=== PATIENT | female | born 1965 | race Caucasian/White ===

== ENCOUNTER 2024-02-14 01:25 | Inpatient (IN) | payer MEDICARE, MEDICAID ==
[~2024-02-14] VITALS: Ht 162.6 cm; Wt 91.2 kg
[~2024-02-14 01:25] MED LIST: ACET1TAB12 PO; AZIT250T PO; BACL10TA2 PO; HYDR25TA5 PO; OMEP-84 PO; TRAM50TA2 PO; [UNRECOGNIZED DRUG - CODE] PO
[2024-02-14] MEDS: HYDROmorphone 1 mg/ml syringe IV ONE (02:20)
[2024-02-14 02:23] LABS: BASOPHILS % (AUTO) 0.4 % (0-1); EOSINOPHILS # (AUTO) 0.4 X10'3 (0-0.9); EOSINOPHILS % (AUTO) 4.8 % (0-6); HEMATOCRIT 37.8 % (35.0-45.0); HEMOGLOBIN 12.9 g/dl (12.0-16.0); LYMPHOCYTES # (AUTO) 2.7 X10'3 (1.1-4.8); LYMPHOCYTES % (AUTO) 32.1 % (21-51); MEAN CORPUSCULAR HEMOGLOBIN 26.7 PG (27.0-31.0); MEAN CORPUSCULAR HGB CONC 34.2 g/dL (33.0-36.5); MEAN PLATELET VOLUME 8.4 FL (7.4-10.4); MONOCYTES # (AUTO) 0.7 X10'3 (0-0.9); NEUTROPHILS # (AUTO) 4.6 X10'3 (1.8-7.7); NEUTROPHILS % (AUTO) 54.7 % (42-75); PLATELET COUNT 267 X10'3 (140-440); RED BLOOD COUNT 4.85 X10'6 (4.20-5.60); RED CELL DISTRIBUTION WIDTH 14.2 % (11.5-14.5); WHITE BLOOD COUNT 8.5 X10'3 (4.5-11.0)
[2024-02-14 02:35] LABS: APTT 27 SECONDS (22-32); PROTHROMBIN TIME 10.3 SECONDS (9.0-12.0)
[2024-02-14] MEDS ORDERED: potassium Cl 40MEQ/1/2NS 520ml 520 ML IV PRN (02:45)
[2024-02-14] MEDS ORDERED: mag hydrox/Alum hydrox/simeth 30ml oral suspension PO PRN (02:45)
[2024-02-14] MEDS ORDERED: acetaminophen 325mg tablet PO PRN (02:45)
[2024-02-14] MEDS ORDERED: magnesium Cl slow-release 64mg tablet PO PRN (02:45)
[2024-02-14] MEDS ORDERED: HYDROmorphone/PF 0.2 MG/ML SYRINGE IV PRN (02:45)
[2024-02-14] MEDS ORDERED: magnesium sulf-water 4G/100mL 100 ML IV PRN (02:45)
[2024-02-14] MEDS ORDERED: potassium Cl 20 mEq SR tablet PO PRN ×2 (02:45)
[2024-02-14] MEDS ORDERED: magnesium sulf-water 2g/50mL 50 ML IV PRN (02:45)
[2024-02-14] MEDS ORDERED: ondansetron/PF 4mg/2ml inj IV PRN (02:45)
[2024-02-14 02:47] LABS: ALANINE AMINOTRANSFERASE 18 U/L (12-78); ALKALINE PHOSPHATASE 71 IU/L (46-116); ANION GAP 7 (8-16); ASPARTATE AMINO TRANSFERASE 21 U/L (10-37); BILIRUBIN,DIRECT 0.2 MG/DL (0-0.3); BILIRUBIN,TOTAL 0.8 MG/DL (0.1-1.0); BLOOD UREA NITROGEN 10 MG/DL (7-18); BUN/CREATININE RATIO 8.3 (10.0-20.0); CALCIUM 8.2 MG/DL (8.5-10.1); CHLORIDE 103 MMOL/L (99-107); CREATININE 1.21 MG/DL (0.40-0.90); GLUCOSE 115 MG/DL (70-104); MAGNESIUM 2.5 MG/DL (1.5-2.4); SODIUM 140 MMOL/L (135-145); TOTAL PROTEIN 6.1 G/DL (6.4-8.2); eCRCL 44 ML/MIN; eGFR 46 ML/MIN
[2024-02-14] MEDS ORDERED: DEXTROSE 15 GM of carb/4 tabs (each vial/BOTTLE has 4 tablets) PO PRN ×2 (02:50)
[2024-02-14] MEDS ORDERED: glucagon, human recombinant 1mg kit SUBCUT PRN (02:50)
[2024-02-14] MEDS ORDERED: dextrose 50%-water 50ml dispensing syringe IV PRN ×2 (02:50)
[2024-02-14 02:53] LABS: POTASSIUM 2.9 MMOL/L (3.5-5.1)
[2024-02-14] MEDS ORDERED: POTA-206 PO (03:50)
[2024-02-14] MEDS ORDERED: DULO-31 PO (03:50)
[2024-02-14] MEDS ORDERED: LEVO50CA4 PO (03:50)
[2024-02-14] MEDS ORDERED: SEMA2PEN SUBCUT (03:50)
[2024-02-14] MEDS ORDERED: HYDR12.55 PO (03:50)
[2024-02-14] MEDS: piperacillin/tazo 3.375gm/50ml 50 ML IV SCH (04:12)
[2024-02-14] MEDS: normal saline 1000ml 1,000 ML IV SCH (04:12)
[2024-02-14] MEDS: potassium Cl 40MEQ/1/2NS 520ml 520 ML IV SCH (04:25)
[2024-02-14] MEDS: INSULIN LISPRO 100 UNIT/ML INSULN.PEN MULTI-DOSE SQ SCH ×2 (07:00→09:00)
[2024-02-14] MEDS: K and/or MAG REPLACEMENT MC SCH (08:00)
[2024-02-14 09:06] VITALS: BP 117/67; PULSE 69; RESP 18; TEMP 98.7; O2SAT 99
[2024-02-14] MEDS: diatr meglu/diatrizoate 30ml oral sol.-(3 dose) bottle PO SCH (11:05)
[2024-02-14] MEDS: acetaminophen 325mg tablet PO PRN (14:12)
[2024-02-14] MEDS ORDERED: baclofen 10mg tablet PO PRN (16:05)
[2024-02-14] MEDS ORDERED: iohexol 300mg/ml 100ml inj. ONE (16:55)
[2024-02-14 19:00] VITALS: BP 143/75; RESP 18; TEMP 97.1; O2SAT 98
[2024-02-14 19:30] VITALS: RESP 16; O2SAT 98
[2024-02-14] MEDS: enoxaparin 40mg/0.4ml syringe SUBCUT SCH (20:00)
[2024-02-14] MEDS ORDERED: insulin glargine (Lantus) pen - multi-dose SQ SCH (21:00)
[2024-02-14 22:20] VITALS: BP 134/72; PULSE 68; RESP 16; TEMP 97.4; O2SAT 100
[2024-02-15 05:37] VITALS: BP 118/67; PULSE 69; RESP 17; TEMP 97.3; O2SAT 97
[2024-02-15 06:16] LABS: BASOPHILS % (AUTO) 0.6 % (0-1); EOSINOPHILS # (AUTO) 0.5 X10'3 (0-0.9); EOSINOPHILS % (AUTO) 8.4 % (0-6); HEMATOCRIT 36.7 % (35.0-45.0); HEMOGLOBIN 12.5 g/dl (12.0-16.0); LYMPHOCYTES # (AUTO) 1.9 X10'3 (1.1-4.8); LYMPHOCYTES % (AUTO) 34.8 % (21-51); MEAN CORPUSCULAR HEMOGLOBIN 26.9 PG (27.0-31.0); MEAN CORPUSCULAR HGB CONC 34.2 g/dL (33.0-36.5); MEAN CORPUSCULAR VOLUME 78.9 FL (78-98); MEAN PLATELET VOLUME 9.1 FL (7.4-10.4); MONOCYTES # (AUTO) 0.5 X10'3 (0-0.9); MONOCYTES % (AUTO) 9.4 % (2-12); NEUTROPHILS # (AUTO) 2.5 X10'3 (1.8-7.7); NEUTROPHILS % (AUTO) 46.8 % (42-75); PLATELET COUNT 250 X10'3 (140-440); RED BLOOD COUNT 4.66 X10'6 (4.20-5.60); RED CELL DISTRIBUTION WIDTH 13.4 % (11.5-14.5); WHITE BLOOD COUNT 5.4 X10'3 (4.5-11.0)
[2024-02-15 06:17] LABS: ALANINE AMINOTRANSFERASE 21 U/L (12-78); ALBUMIN 2.6 G/DL (3.4-5.0); ALBUMIN/GLOBULIN RATIO 0.9 (1.1-1.5); ALKALINE PHOSPHATASE 58 IU/L (46-116); ANION GAP 6 (8-16); ASPARTATE AMINO TRANSFERASE 13 U/L (10-37); BILIRUBIN,TOTAL 0.7 MG/DL (0.1-1.0); BLOOD UREA NITROGEN 9 MG/DL (7-18); BUN/CREATININE RATIO 8.3 (10.0-20.0); CALCIUM 8.2 MG/DL (8.5-10.1); CHLORIDE 108 MMOL/L (99-107); CREATININE 1.08 MG/DL (0.40-0.90); GLUCOSE 128 MG/DL (70-104); MAGNESIUM 2.3 MG/DL (1.5-2.4); PHOSPHORUS 4.1 MG/DL (2.3-4.5); POTASSIUM 3.4 MMOL/L (3.5-5.1); SODIUM 142 MMOL/L (135-145); TOTAL CARBON DIOXIDE 27.7 MMOL/L (24-32); TOTAL PROTEIN 5.6 G/DL (6.4-8.2); eCRCL 50 ML/MIN; eGFR 52 ML/MIN
[2024-02-15 06:22] LABS: PROTHROMBIN TIME 10.8 SECONDS (9.0-12.0)
[2024-02-15 08:00] VITALS: RESP 16; O2SAT 96
[2024-02-15] MEDS: duloxetine 30mg CAPSULE.DR PO SCH (08:11)
[2024-02-15] MEDS: levoTHYROXINE 25mcg tablet PO SCH (08:12)
[2024-02-15] MEDS: potassium Cl 20 mEq SR tablet PO STA (09:08)
[2024-02-15 11:19] VITALS: BP 140/88; PULSE 85; RESP 18; TEMP 97.8; O2SAT 99
== END 2024-02-15 11:47 | disposition home or self-care (01) | DRG 392 ==
LOC: ER 01:26 → ED HOLD 02:47 → ORTHO 4S 07:16 → SUR 3N 16:21
PROVIDERS: ADMIT Internal Medicine Critical Care Medicine; ATTEND Family Medicine
DX: K52.9 Noninfective gastroenteritis and colitis, unspecified (principal); E03.9 Hypothyroidism, unspecified; E78.5 Hyperlipidemia, unspecified; E87.6 Hypokalemia; N18.30 Chronic kidney disease, stage 3 unspecified; E11.22 Type 2 diabetes mellitus with diabetic chronic kidney disease; I12.9 Hypertensive chronic kidney disease with stage 1 through stage 4 chronic kidney disease, or unspecified chronic kidney disease; F32.A Depression, unspecified; G89.29 Other chronic pain; N28.9 Disorder of kidney and ureter, unspecified; Z79.85 Long-term (current) use of injectable non-insulin antidiabetic drugs; Z79.899 Other long term (current) drug therapy; Z90.710 Acquired absence of both cervix and uterus; Z88.6 Allergy status to analgesic agent; Z88.1 Allergy status to other antibiotic agents; Z88.5 Allergy status to narcotic agent
CPT/HCPCS: 36415; 74177; 80048; 80053; 80076; 82948; 83605; 83735; 84100; 84132; 84145; 85025; 85610; 85730; 87040; 87081; 93005; 99291; G0378; J1650; J2543; J3480; J7030; Q9963; Q9967